=== PATIENT | female | born 1975 | race Caucasian/White ===

== ENCOUNTER 2022-07-29 16:47 | Emergency (ER) | payer MEDICAID ==
[~2022-07-29] VITALS: Ht 160 cm; Wt 85.0 kg
[2022-07-29 21:15] LABS: BASOPHILS % 0.4 % (0.0-2.0); EOSINOPHILS % 0.4 % (0.0-5.0); HEMATOCRIT. 40.7 % (36.0-48.0); HEMOGLOBIN. 13.6 g/dL (12.0-16.0); LYMPHOCYTES % 11.9 % (20.0-50.0); MEAN CORPUSCULAR HEMOGLOBIN 29.1 pg (28.0-32.0); MEAN PLATELET VOLUME 7.4 fl (7.4-10.4); MONOCYTES % 4.5 % (2.0-8.0); NEUTROPHILS % 82.8 % (40.0-76.0); PLATELET 339 x1000/uL (130-400); RED BLOOD CELL COUNT 4.68 mill/uL (4.2-5.4); RED CELL DISTRIBUTION WIDTH 13.1 % (11.6-14.6)
[2022-07-29 21:17] LABS: CHLORIDE 98 mEq/L (98-107)
[2022-07-29 21:26] LABS: CLARITY URINE CLEAR (CLEAR); COLOR URINE YELLOW (YELLOW); KETONES URINE TRACE (NEGATIVE); LEUKOCYTE ESTERASE URINE NEGATIVE (NEGATIVE); NITRITE URINE NEGATIVE (NEGATIVE); OCCULT BLOOD URINE TRACE (NEGATIVE); PH URINE 6.5 (4.5-8.0); PROTEIN URINE NEGATIVE (NEGATIVE); SPECIFIC GRAVITY URINE 1.035 (1.005-1.030); UROBILINOGEN URINE 0.2 E.U./dL (0.2-1.0)
[2022-07-29] MEDS ORDERED: IBUPROFEN 600MG TABLET PO ONE (21:30)
[2022-07-29 21:31] LABS: HCG SCREEN NEGATIVE
[2022-07-29] MEDS ORDERED: METF-416 MT (22:30)
[2022-07-29] MEDS ORDERED: IBUP-2029 MT (22:30)
[2022-07-29 22:54] VITALS: BP 125/78
== END 2022-07-29 22:55 | disposition home or self-care (01) ==
LOC: ER 16:47
DX: E11.65 Type 2 diabetes mellitus with hyperglycemia (principal)
CPT/HCPCS: 36415; 74176; 80053; 81003; 81025; 84703; 85025; 99284